=== PATIENT | male | born 2000 | race Two or more races ===

== ENCOUNTER 2022-05-15 22:32 | Emergency (ER) | payer SELFPAY ==
[~2022-05-15] VITALS: Ht 182.9 cm; Wt 108.9 kg
[2022-05-16] MEDS ORDERED: HYDROcodone-ACET 5/325MG TAB PO ONE
[2022-05-16] MEDS ORDERED: BACITRACIN TOP OINT 1 UD PKG TOP ONE
[2022-05-16] MEDS ORDERED: SODIUM CHLORIDE 0.9% 2,000 ML IV ONE
[2022-05-16 05:00] VITALS: BP 164/100
== END 2022-05-16 05:39 | disposition home or self-care (01) ==
LOC: EDBD 22:32 → ER 22:32
DX: T22.231A Burn of second degree of right upper arm, initial encounter (principal); T22.232A Burn of second degree of left upper arm, initial encounter; X58.XXXA Exposure to other specified factors, initial encounter; Y93.89 Activity, other specified; Y92.89 Other specified places as the place of occurrence of the external cause; Y99.8 Other external cause status
CPT/HCPCS: 96360; 96361; 99283; J7030